=== PATIENT | male | born 1945 | race Caucasian/White ===

== ENCOUNTER 2017-05-11 13:22 | Inpatient (IN) ==
--- NOTE | 2017-05-10 16:21 | Discharge Summary ---
<Mindy Whipple E - Last Filed: 05/10/17 16:18> Date of Encounter: 05/10/17 - Discharge Diagnosis (1) Arthritis of left hip Priority: Primary Status: Chronic (2) CAD (coronary artery disease) Priority: Secondary Status: Chronic Qualifiers: Coronary Disease-Associated Artery/Lesion type: unspecified vessel or lesion type [place] vs. transplanted heart: unspecified whether [place] or transplanted heart Associated angina: angina presence unspecified Qualified Code(s): I25.10 - Atherosclerotic heart disease of [place] coronary artery without angina pectoris (3) Hypertension Priority: Secondary Status: Chronic Qualifiers: Hypertension type: unspecified Qualified Code(s): I10 - Essential (primary ) hypertension (4) Diabetes mellitus Priority: Secondary Status: Chronic Qualifiers: Diabetes mellitus type: type 2 Diabetes mellitus complication status: without complication Diabetes mellitus alf insulin use: without terminologist use Qualified Code(s): E11.9 - Type 2 diabetes mellitus without complications (5) Hemoglobin A1c less than 7.0% Priority: Secondary Status: Chronic (6) HLD (hyperlipidemia) Priority: Secondary Status: Chronic Qualifiers: Hyperlipidemia type: unspecified Qualified Code(s): E78.5 - Hyperlipidemia , unspecified (7) BMI 31.0-31.9,adult Priority: Secondary Status: Chronic - Discharge Medications Home Medications: Aspirin Enteric Coated [Aspirin EC] 325 mg PO DAILY #21 tablet. 05/10/17 [Rx] OxyCODONE Immed Rel [Roxicodone 5 MG] 5 - 10 mg PO Q6HR PRN #40 tablet 05/10/17 [Rx] Lisinopril/Hydrochlorothiazide [Zestoretic 20-25 mg Tablet] 1 each PO DAILY [History] Metoprolol [Lopressor] 50 mg PO QAM 05/11/17 [History] Metoprolol [Lopressor] 100 mg PO HS 05/11/17 [History] Simvastatin [Zocor] 20 mg PO HS 05/11/17 [History] Tramadol HCl [Ultram] 50 mg PO QID PRN 05/11/17 [History] metFORMIN [Glucophage] 500 mg PO BIDWM 05/11/17 [History] Allergies/Adverse Reactions: Allergies No Known Allergies Allergy (Verified 05/11/17 13:45) Primary care physician: Robert Hays Jr, MD - Patient Status Disposition: Transfer Inpatient Rehab Fac - Discharge Instructions Follow Up With: Anjum Esparza MD [Partnered Physician] - 05/21/17 8:30 am Robert Hays Jr, MD [Primary Care Provider] - Additional Instructions: Discharge Instructions: Total Hip Replacement Please call [facility] ([phone]), your Primary Care Physician, or report to the Emergency Room if you have any of the following symptoms: Nausea, vomiting, fever greater that 101.5, swelling, chest pain, shortness of breath, increased pain/redness/drainage/odor for your incision site, numbness/ tingling, or any other concerning symptoms. ACTIVITY:Weight-bearing as tolerated for 8 weeks with hip dislocation precautions that physical therapy taught you. You may progress as tolerated under the guidance of your physical therapist. You do not need to sleep with a pillow between your legs. You can also seep on the operative side or on your stomach. MEDICATIONS: Upon discharge resume your home medications. Take all the medications as prescribed. Take a stool softener if taking narcotic pain medications. Stool softeners are only effective if you drink enough fluids. Drink 6-8 glass of water or fluids a day, unless this is not allowed for another health problem. Despite using stool softeners, if you haven't had a bowel movement in 3 days, please switch to a gentle laxative. Gentle laxatives are sold over the counter. You should have a bowel movement within 24 hours, if not call the office. You will be discharged from the hospital with a prescription for pain medication. You are encouraged to decrease the use of narcotic pain medication as tolerated. Should you require a refill, please call the office. [facility] prescribes narcotic pain medication for only 4-6 weeks after surgery. If you require pain medication beyond this time period, you may be referred to your Primary Care Physician or to the Pain Clinic for further evaluation. Plan ahead for refills on pain medication as many narcotics either need to be picked up at the office or mailed. It is best to call 48-72 hours in advance of needing a prescription refill so you don't run out of medication. To help control the post-operative pain, you may take NSAIDs (Aleve,Advil, Motrin, ibuprofen, naprosyn) or Tylenol as prescribed on the bottle in addition to the pain medication. ANTICOAGULATION (blood thinners): Continue your Aspirin, Lovenox or Coumadin as prescribed to help prevent a blood clot in the leg or in the lungs. As long as your incision remains dry and you tolerate the NSAIDs (Aleve, Advil, Motrin, Ibuprofen, Naprosyn), it is OK to use the NSAIDS while you are taking your anticoagulation medication. Should your incision start to drain, stop the NSAID and contact our office. Common symptoms of blood clot in the legs include: localized pain, swelling, calf tenderness, redness or discoloration of the skin. Blood clot in the lung symptoms include: shortness of breath, rapid pulse, sweating, and chest pain that worsens with deep breathing, coughing up blood, lightheadedness, feelings of anxiety. If you experience any of these symptoms notify your physician immediately, go to the emergency room, or if having trouble breathing, call 911. WOUND CARE: Leave the dressing on for 7 to 10days. You may change the dressing if it is saturated greater than 50%. Do not get the dressing wet at anytime. Wash your hands with antibacterial soap, rinse and dry prior to any wound care. If you have yelitza the visiting nurse or rehab facility can remove the stapes 10-14 days after surgery and place steri-strips across the wound. Leave the steri-strips in place until they fall off on their own. You may let water from the shower run on top of the steri-strips. If you do not have a visiting nurse or rehab facility, you will need to return to the office at 10-14 days for the yelitza to be removed. If you have itching or redness around the dressing call the office. FOLLOW-UP: Please follow up with your surgeon in the orthopedic clinic in 6 weeks from the day of surgery. If you have yelitza that need to be removed, you will need to come back to the office in 10-14 days from the day of surgery. - Hospital Course Hospital course: Mr. Merrill is a 71 year old male - Time Spent with Patient Total time spent providing and/or coordinating discharge services: - VTE Documentation of Mechanical Device: Venous foot pump, device <Anjum Esparza - Last Filed: 05/13/17 15:23> Date of Encounter: 05/13/17 Time of Encounter: 15:22 - Discharge Diagnosis (1) Arthritis of left hip Priority: Primary Status: Chronic (2) CAD (coronary artery disease) Priority: Secondary Status: Chronic Qualifiers: Coronary Disease-Associated Artery/Lesion type: unspecified vessel or lesion type [place] vs. transplanted heart: unspecified whether [place] or transplanted heart Associated angina: angina presence unspecified Qualified Code(s): I25.10 - Atherosclerotic heart disease of [place] coronary artery without angina pectoris (3) Hypertension Priority: Secondary Status: Chronic Qualifiers: Hypertension type: unspecified Qualified Code(s): I10 - Essential (primary ) hypertension (4) Diabetes mellitus Priority: Secondary Status: Chronic Qualifiers: Diabetes mellitus type: type 2 Diabetes mellitus complication status: without complication Diabetes mellitus alf insulin use: without alf use Qualified Code(s): E11.9 - Type 2 diabetes mellitus without complications (5) HLD (hyperlipidemia) Priority: Secondary Status: Chronic Qualifiers: Hyperlipidemia type: unspecified Qualified Code(s): E78.5 - Hyperlipidemia , unspecified (6) History of total left hip replacement Priority: Primary Status: Acute (7) Acute blood loss anemia Priority: Primary Status: Acute (8) Obesity (BMI 30.0-34.9) Priority: Secondary Status: Chronic Labs on day of discharge: Labs from last 24 hours 05/11/17 13:39 POC Glucose 128 H Primary care physician: Robert Hays Jr, MD - Hospital Course Hospital course: Mr. Merrill is a 71 year old male Status post left total hip replacement. The patient had an uneventful postoperative course. They received antibiotics and physical therapy and were discharged in stable condition. There will follow -up in the office in 2 weeks. Aspirin DVT prophylaxis - Time Spent with Patient Total time spent providing and/or coordinating discharge services:
--- NOTE | 2017-05-10 16:25 | Physician Discharge Referral ---
<Anjum Esparza - Last Filed: 05/14/17 13:42> - Diagnosis (1) Arthritis of left hip Status: Chronic (2) CAD (coronary artery disease) Status: Chronic (3) Hypertension Status: Chronic (4) Diabetes mellitus Status: Chronic (5) HLD (hyperlipidemia) Status: Chronic (6) History of total left hip replacement Status: Acute (7) Acute blood loss anemia Status: Acute (8) Obesity (BMI 30.0-34.9) Status: Chronic - Respiratory Orders Smoking Cessation: Smoking cessation has been advised. For more information, call the [place] Tobacco Quit Line at 5-753-USRZ-NOW. - Transfer Medications Home Medications: Aspirin Enteric Coated [Aspirin EC] 325 mg PO DAILY #21 tablet. 05/10/17 [Rx] OxyCODONE Immed Rel [Roxicodone 5 MG] 5 - 10 mg PO Q6HR PRN #40 tablet 05/10/17 [Rx] Lisinopril/Hydrochlorothiazide [Zestoretic 20-25 mg Tablet] 1 each PO DAILY [History] Metoprolol [Lopressor] 50 mg PO QAM 05/11/17 [History] Metoprolol [Lopressor] 100 mg PO HS 05/11/17 [History] Simvastatin [Zocor] 20 mg PO HS 05/11/17 [History] Tramadol HCl [Ultram] 50 mg PO QID PRN 05/11/17 [History] metFORMIN [Glucophage] 500 mg PO BIDWM 05/11/17 [History] Allergies/Adverse Reactions: Allergies No Known Allergies Allergy (Verified 05/11/17 13:45) Certification: Further, I certify that my clinical findings support that this patient is homebound (i.e. absences from home require considerable and taxing effort and are for medical reasons or latter-day services or infrequently or short duration when for other reasons) because: Attestation: My signature below is to certify that this patient is under my care and that I, or nurse practitioner, or a physician's insurance assistant working with me, has a face-to -face encounter with this patient. <Yanira Wilcox - Last Filed: 05/14/17 13:46> Home Health/Hosp Referral Info Transfer to: Home Health Provider in Charge Post Discharge: PCP - Diagnosis (1) History of total left hip replacement Priority: Primary Status: Acute (2) Arthritis of left hip Priority: Primary Status: Chronic (3) CAD (coronary artery disease) Priority: Secondary Status: Chronic (4) Diabetes mellitus Priority: Secondary Status: Chronic (5) HLD (hyperlipidemia) Priority: Secondary Status: Chronic (6) Hypertension Priority: Secondary Status: Chronic - Respiratory Orders Smoking Cessation: Smoking cessation has been advised. For more information, call the [place] Tobacco Quit Line at 4-396-WZHD-NOW. - Dressing/Wound Care Type of Dressing/Treatments w/Frequency: Opsite dressing, leave intact until first post-operative visit. If dressing becomes >50% saturated, contact office, remove dressing and place appropriate dressing in its place. Do not allow for dressing to get wet. [place] in place, plan to remove at post-operative day #14-16. Total Joint Precautions x 6 weeks Apply ICE 3-6x/day for 20 minutes at a time. Encourage ambulation throughout the day Use Incentive spirometer 10x/hour. Elevate affected extremity above heart as tolerated. Brace: Wear hip abduction brace at night x 6 weeks. - Diet/Nutrition Diet/Nutrition Orders: Regular - Activity Activity Orders: Up ad ilda, Ambulate - Services Needed Following services are medically necessary services: Nursing, Home Health Aide, Physical Therapy, Occupational Therapy Certification: Further, I certify that my clinical findings support that this patient is homebound (i.e. absences from home require considerable and taxing effort and are for medical reasons or latter-day services or infrequently or short duration when for other reasons) because: Homebound Reason: Post-surgery restriction and or conditions limit ability to leave home Attestation: My signature below is to certify that this patient is under my care and that I, or nurse practitioner, or a physician's insurance assistant working with me, has a face-to -face encounter with this patient. <Mindy Whipple E - Last Filed: 05/14/17 14:19> Home Health/Hosp Referral Info Transfer to: Home Health Attending Provider: Dr. Anjum Esparza - Diagnosis (1) History of total left hip replacement Priority: Primary Status: Acute (2) Arthritis of left hip Priority: Primary Status: Chronic (3) CAD (coronary artery disease) Priority: Secondary Status: Chronic (4) Hypertension Priority: Secondary Status: Chronic (5) Diabetes mellitus Priority: Secondary Status: Chronic (6) Hemoglobin A1c less than 7.0% Priority: Secondary Status: Chronic (7) HLD (hyperlipidemia) Priority: Secondary Status: Chronic (8) BMI 31.0-31.9,adult Priority: Secondary Status: Chronic - Respiratory Orders Smoking Cessation: Smoking cessation has been advised. For more information, call the [place] Tobacco Quit Line at 6-285-AKVM-NOW. - Dressing/Wound Care Site: left hip Type of Dressing/Treatments w/Frequency: Opsite placed. Keep dressing intact until first follow up appointment. If > 50% saturated, notify office, remove dressing and place appropriate dressing back in place. Dressing is water resistant, not water-proof. OK to shower, but do not get dressing wet. - Diet/Nutrition Diet/Nutrition Orders: Regular - Activity Activity Orders: Ambulate, Chair, Walker Activity: List: Total Hip replacement Precautions Apply cold therapy 3-6x/day for 20 minutes at a time. Encourage ambulation throughout the day and incentive spirometer 10x/hour. Elevate affected extremity as tolerated. Brace: Wear hip abduction pillow when laying/sleeping - Services Needed Following services are medically necessary services: Nursing, Physical Therapy, Occupational Therapy Certification: Further, I certify that my clinical findings support that this patient is homebound (i.e. absences from home require considerable and taxing effort and are for medical reasons or latter-day services or infrequently or short duration when for other reasons) because: Attestation: My signature below is to certify that this patient is under my care and that I, or nurse practitioner, or physician insurance assistant working with me, has a face-to- face encounter with this patient.
[~2017-05-11 13:22] MED LIST: *HR* Labetalol 20 MG/4 ML SYRINGE IVP PRN; *HR* Morphine 2 MG/ML SYRINGE IVP PRN; Dexamethasone 4 MG/ML VIAL IVP ONE; Ondansetron 4 MG/2 ML VIAL IVP ONE
[2017-05-11] MEDS ORDERED: Acetaminophen IV 1,000 MG/100 ML INFUS..BTL IVPB ONE (13:35)
[2017-05-11] MEDS ORDERED: Gabapentin 300 MG CAPSULE PO STA (13:35)
--- NOTE | 2017-05-11 13:39 | Anesthesia Evaluation PreOp ---
Date of Encounter: 05/11/17 Time of Encounter: 13:36 - Past History Planned Operation: L-Total Hip Cardiac History: [place] ( [place] in 1998. 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 05/10/17 [Rx] OxyCODONE Immed Rel [Roxicodone 5 MG] 5 - 10 mg PO Q6HR PRN #40 tablet 05/10/17 [Rx] Allergies No Known Allergies Allergy (Verified 05/11/17 13:45) - Meds/Allergy Pre-op Review Medications Reviewed: Yes Allergies Reviewed: Yes Beta Blockers on Current Med List: Yes (Metoprolol) If Beta Blockers taken, Date/Time (Last Dose taken): 05/11/17 @ 0900 Anesthesia Results - Labs Laboratory Tests 05/04/17 05/04/17 05/04/17 14:40 14:40 14:40 WBC 8.6 Hgb 16.1 Hct 48.6 Plt Count 262 PT 12.2 H INR 1.1 APTT 31.0 Sodium 142 Potassium 4.0 Chloride 104 Carbon Dioxide 28 BUN 21 Creatinine 1.04 Est GFR (Non-Af Amer) > 60 Est Mean Plasma Glucose Hemoglobin A1c 05/04/17 14:40 WBC Hgb Hct Plt Count PT INR APTT Sodium Potassium Chloride Carbon Dioxide BUN Creatinine Est GFR (Non-Af Amer) Est Mean Plasma Glucose 148 Hemoglobin A1c 6.8 H - Imaging EKG: image reviewed (78bpm NSR) Anesthesia Exam O2 Sat Height 1.7 m Weight 88.904 kg O2 Sat by Pulse Oximetry 95 Vital Signs Temp Pulse Resp BP Pulse Ox 98.3 F 82 16 145/74 95 05/11/17 13:25 05/11/17 13:25 05/11/17 13:25 05/11/17 13:05/11/17 13:25 Height: 5'7" Weight: 203# BMI = 31 NPO (# of Hours): MNoc - HEENT Pupil (Motor): Pupils equal, EOMI Mallampati: II Teeth: Missing, Edentulous (upper), Poor dentition Denture Type: Lower: Partial Oral Opening: Greater than 3 - MANUFACT[employer]ING [employer] LEADER LOC: Oriented MANUFA[employer]ING [employer] LEADER Motor: Normal RUE, Normal LUE, Normal RLE, Normal LLE, Normal Face [employer]UFA[employer]ING [employer] LEADER Sensory: Normal: RUE, LUE, RLE, LLE, Face - Cardiac Rhythm: Regular Murmur: None - Pulmonary Breath Sounds: bilateral Clear Respiratory Effort: Symmetrical Anesthesia Assess/Plan ASA Score: 3 (CAD, DM, HTN, Chol,) Modified Sylvester Scale for Level of Consciousness: Cooperative, oriented, and tranquil Anesthetic Plan: General Monitoring Plan: Standard Monitors Recovery Plan: PACU Anes Supervising Prov Stmt: Pt seen/evaluated, R&B discussed, questions answered and consent obtained. Maria Antonia Meyers MD
[2017-05-11] MEDS ORDERED: CeFAZolin Pre 2,000 MG/100 ML 2,000 MG/100 ML BAG IVPB ONE (13:44)
[2017-05-11] MEDS ORDERED: Ringers Solution, Lactated 1,000 ML IVC SCH ×2 (13:45→18:29)
--- NOTE | 2017-05-11 14:13 | History & Physical Report ---
Date of Encounter: 05/11/17 Time of Encounter: 14:13 24 Hour HP Update - Instructions Instructions: If the History and Physical is less than 30 days old and was completed prior to A.M. admission and or procedure and has NOT been updated on calendar day of procedure please complete this update prior to performing procedure. - Update Patient reports changes in Medical Condition: No Changes in examination, assessment, or condition: No Changes in Medication: No Preop tests/diagnostics Reviewed: Yes Surgery Remains Indicated: Yes Consent for Planned Operative Procedure(s) Verified: Yes - Pre-Operative Checklist Preoperative Checklist Indicated: No Prophylactic Antibiotic Ordered: Yes Is VTE Prophylaxis Indicated?: Yes
[2017-05-11] MEDS ORDERED: Ondansetron 4 MG/2 ML VIAL ONE (14:40)
[2017-05-11] MEDS ORDERED: *HR* Propofol 200 MG/20 ML VIAL IVP ONE (14:40)
[2017-05-11] MEDS ORDERED: Lidocaine -MPF 2% 2 ML VIAL ONE (14:40)
[2017-05-11] MEDS ORDERED: *HR* FentaNYL (PF) 100 MCG/2 ML VIAL ONE (14:40)
[2017-05-11] MEDS ORDERED: Dexamethasone 4 MG/ML VIAL ONE (14:40)
[2017-05-11] MEDS ORDERED: *HR* Midazolam HCl 2 MG/2 ML VIAL ONE (15:02)
[2017-05-11] MEDS ORDERED: Bupivacaine/Clonidine Syringe 1 EACH SYRINGE ONE (15:20)
--- NOTE | 2017-05-11 16:27 | Anesthesia Procedures ---
Date of Encounter: 05/11/17 Time of Encounter: 15:40 Procedures: Anesthesia - Nerve Block Procedure Date: 05/11/17 Time: 15:40 Allergies/Adv Reactions: nka Surgical Procedure: Left ANDRESSA Checklist: Correct Patient Identifier, Correct procedure, History checked Correct side: Left Blood Thinner: No Monitor Applied: EKG, BP, Pulse Oximetry Supplemental Oxygen via Nasal Cannula (L/min): 3 Sedation: Versed (mg): 2 Sedation: Fentanyl (mcg): 100 Indication: Post Op Analgesia (per dr. bravo) Pre-op Neuro Deficits: No Block Type: Other (fascia iliaca) Catheter placed: No Sterile Technique: Yes Ultrasound used: Yes Anatomy identified: Yes Visual spread of Local: Yes Neuro Stimulation: No Blood on Needle Aspiration: No Smooth Injection of Local: Yes Pain with Injection of Local: No Prep: Chlorhexadine Needle: 22 x 50 mm Stimuplex Local: 0.25% Bupivicaine w/Clonidine 20 mcg/cc Volume (cc): 60 Number of Attempts: 1 Complications: None/effective block Vitals: Vital Signs/O2 Sat/Glucose, Most Recent Temp Pulse Resp BP Pulse Ox 98.3 F 79 18 140/101 97 05/11/17 13:25 05/11/17 15:20 05/11/17 15:20 05/11/17 15:20 05/11/17 15:20 Blood Glucose* 128 Comments: performed by Godfrey Espinosa crna
--- NOTE | 2017-05-11 16:43 | Orthopedic Operative Note ---
Date of procedure: 05/11/17 Pre-op diagnosis: Left hip arthritis Post-op diagnosis: same Procedure: Procedure: Left Total Hip Replacment Estimated blood loss: 200 cc Hardware: Metal and polyethylene replacement. Biomet DM Cup: 56 G7 fin cup Femoral size 13 echo full profile lateralized stem Head: +12 head with Susanne Procedural Notes: Grade 4 arthritic changes femoral head acetabular socket. Operative procedure: The patient was brought to the operating room and placed on the operating room table. After general anesthesia was administered the patient was placed in the lateral decubitus position with the operative leg up. All pressure points were padded appropriately and the head was stabilized in the neutral position. The operative extremity was prepped and draped in the sterile surgical fashion patient received IV antibiotic prior to skin incision. A standard posterior approach is made to the operative hip, the incision was made through the skin and subcutaneous tissue hemostasis was obtained with Bovie cautery. Using careful sharp dissection the fascia was identified and incised exposing the external rotators. The external rotators were released off the greater trochanter and tagged with #2 FiberWire suture. The capsule was T'd open and the hip was brought into internal rotation. Patient noted to have grade 4 arthritic changes femoral head. The femoral neck cut was made at the appropriate level. An anterior capsulotomy was performed for the anterior retractor. Soft tissues removed from the acetabulum. Patient noted to have grade 4 arthritic changes acetabulum. Acetabulum was first reamed medially, and then reamed in 15 degrees of anteversion and 45 degrees off the horizontal. It was reamed up to the appropriate size 56 The appropriate-sized 56 acetabular cup was impacted in place in 15 degrees of anteversion and 45 degrees off the horizontal. This had good fit and fixation. The hip was brought back in to internal rotation and prepared with the sample box maker followed by the canal finder followed by broaching process in 20 degrees anteversion. It was broached up to the appropriate size 13 The femoral implant was impacted in place in 20 degrees of anteversion. Trial reduction found the hip to be stable with a +12 head and Susanne. The trials were removed and the real implants were impacted in place. The hip was reduced, patient had apparent equal leg lengths. The hip had excellent stability with forward flexion to 90 degrees adduction of 30 degrees and internal rotation of 60 degrees. The hip had no shuck. The hips after 2 minutes with a Betadine saline solution. It was irrigated out with 2 L of pulse irrigation. The hip was closed by the PA. Fascia was closed with a running #2 PDS suture. The deep tissue was irrigated and closed deep with #1 PDS suture superficially with 0 PDS suture and skin was closed with Dermabond and skin yelitza. The patient was placed in a sterile dressing and abduction pillow. The patient was extubated and transferred to the recovery room in stable condition. Anesthesia: CARRIE Surgeon: Anjum Esparza Set Up Mechanic Coil Winding Machines: Mindy Whipple Condition: stable Disposition: PACU
[2017-05-11] MEDS ORDERED: *HR* Morphine 10 MG/ML VIAL ONE (16:44)
[2017-05-11] MEDS: *HR* HYDROmorphone (PF) 1 MG/ML SYRINGE IVP PRN ×2 (17:30→17:54)
[2017-05-11] MEDS ORDERED: *HR* Enoxaparin 30 MG/0.3 ML SYRINGE SQ SCH (18:00)
[2017-05-11 18:08] LABS: Hematocrit 42.4 % (37.5-50.1); Hemoglobin 13.9 g/dL (12.9-16.9)
--- NOTE | 2017-05-11 18:12 | Anesthesia Evaluation Post Op ---
Date of Encounter: 05/11/17 Time of Encounter: 18:09 - Vital Signs Vital Signs: vss - Lungs Lungs: Clear Ascult./Percussion - Airway Airway: Non-obstructed - Cardiovascular Baseline Rhythm - Mental Status Mental Status: Alert & Oriented, Answers Appropriately - Pain Pain Scale used: Yen-Scott (Faces) (tolerable) - Nausea Vomiting Nausea Vomiting: Not Present - Hydration Hydration: Ice chips - Discharge PostOp Status: Transfer Patient to floor
[2017-05-11] MEDS ORDERED: Temazepam 15 MG CAPSULE PO PRN (18:29)
[2017-05-11] MEDS ORDERED: MOM Conc 10 ML UD.LIQ PO PRN (18:29)
[2017-05-11] MEDS ORDERED: Ondansetron 4 MG/2 ML VIAL IVP PRN (18:29)
[2017-05-11] MEDS ORDERED: traMADol 50 MG TABLET PO PRN (18:29)
[2017-05-11] MEDS ORDERED: *HR* Dextrose 50 % in Water (Syg) 50 ML SYRINGE IVP PRN (18:29)
[2017-05-11] MEDS ORDERED: Naloxone 0.4 MG/ML INJ IVP PRN (18:29)
[2017-05-11] MEDS ORDERED: *HR* OxyCODONE Immed Rel 5 MG TABLET PO PRN (18:29)
[2017-05-11] MEDS ORDERED: D5% in Water 1,000 ML IVC PRN (18:29)
[2017-05-11] MEDS ORDERED: *HR* HYDROmorphone (PF) 1 MG/ML SYRINGE IVP PRN (18:29)
[2017-05-11] MEDS ORDERED: Sennosides 8.6 MG TABLET PO PRN (18:29)
[2017-05-11] MEDS ORDERED: Dextrose Gel 15 GM PO PRN ×2 (18:29)
[2017-05-11] MEDS: ceFAZolin 2,000 MG in D5% in Water 100 ML IVPB SCH (20:54)
[2017-05-11] MEDS: Ascorbic Acid 500 MG TABLET PO SCH (20:54)
[2017-05-11] MEDS: *HR* Metformin 500 MG TABLET PO SCH (20:54)
[2017-05-11] MEDS: Insulin LISPRO 300 UNITS/3 ML VIAL SQ SCH ×2 (21:05)
[2017-05-11] MEDS: *HR* OxyCODONE Immed Rel 5 MG TABLET PO PRN (22:36)
[2017-05-12] MEDS: ceFAZolin 2,000 MG in D5% in Water 100 ML IVPB SCH (03:57)
[2017-05-12 05:59] LABS: Hematocrit 38.3 % (37.5-50.1); Hemoglobin 12.6 g/dL (12.9-16.9)
[2017-05-12 06:05] LABS: BUN/Creatinine Ratio 14 (6-26); Blood Urea Nitrogen 12 mg/dL (8-26); Calcium 8.4 mg/dL (8.6-10.8); Carbon Dioxide 30 mEq/L (19-29); Chloride 99 mEq/L (98-109); Glucose 182 mg/dL (70-99); Osmolality,Calculated 278 (280-300); Potassium 4.3 mEq/L (3.5-4.5); Sodium 132 mEq/L (136-145); eGFR For African Americans > 60 (> 60); eGFR For Non-African Americans > 60 (> 60)
[2017-05-12] MEDS: *HR* OxyCODONE Immed Rel 5 MG TABLET PO PRN ×4 (06:26→23:58)
[2017-05-12] MEDS: *HR* Enoxaparin 30 MG/0.3 ML SYRINGE SQ SCH ×2 (06:29→16:47)
--- NOTE | 2017-05-12 06:45 | Orthopedics Progress Note ---
Date of Encounter: 05/12/17 Time of Encounter: 06:44 - Assessment and Plan (1) Arthritis of left hip Current Visit: Yes Status: Chronic (2) CAD (coronary artery disease) Current Visit: Yes Status: Chronic Qualifiers: Coronary Disease-Associated Artery/Lesion type: unspecified vessel or lesion type [place] vs. transplanted heart: unspecified whether [place] or transplanted heart Associated angina: angina presence unspecified Qualified Code(s): I25.10 - Atherosclerotic heart disease of [place] coronary artery without angina pectoris (3) Hypertension Current Visit: Yes Status: Chronic Qualifiers: Hypertension type: unspecified Qualified Code(s): I10 - Essential (primary ) hypertension (4) Diabetes mellitus Current Visit: Yes Status: Chronic Qualifiers: Diabetes mellitus type: type 2 Diabetes mellitus complication status: without complication Diabetes mellitus termination clerk insulin use: without termination clerk use Qualified Code(s): E11.9 - Type 2 diabetes mellitus without complications (5) HLD (hyperlipidemia) Current Visit: Yes Status: Chronic Qualifiers: Hyperlipidemia type: unspecified Qualified Code(s): E78.5 - Hyperlipidemia , unspecified (6) BMI 31.0-31.9,adult Current Visit: Yes Status: Chronic (7) History of total left hip replacement Current Visit: Yes Status: Acute Subjective Interval history: Patient was seen this morning doing well without complaints. Afebrile vital signs stable. Operative extremity: Neurovascularly intact Dressing clean dry and intact Calves nontender Assessment and plan: Continue with postoperative care Hematocrit 38 Objective Vital signs: Vital Signs Temp Pulse Resp BP Pulse Ox 05/12/17 06:03 97 05/12/17 05:08 98.4 F 70 16 119/72 97 05/12/17 00:53 97.8 F 94 16 127/69 95 05/11/17 22:24 98.2 F 104 16 120/67 94 05/11/17 20:30 97.6 F 105 15 123/72 94 05/11/17 18:59 97.7 F 109 18 109/64 95 05/11/17 18:46 95 05/11/17 18:30 97.7 F 103 17 113/69 95 05/11/17 18:11 97.7 F 102 16 132/82 95 05/11/17 18:01 104 16 114/80 96 05/11/17 17:51 97.7 F 98 18 130/81 96 05/11/17 17:41 101 18 136/76 93 05/11/17 17:31 102 18 144/79 97 05/11/17 17:21 97.2 F L 98 16 142/89 98 05/11/17 15:20 79 18 140/101 97 05/11/17 13:25 98.3 F 82 16 145/74 95 Intake and Output 05/11/17 05/11/17 05/12/17 15:59 23:59 07:59 Intake Total 300 / 300 Output Total 200 / 200 560 / 560 Balance 100 / 100 -560 / -560 Intake: IV Fluids 200 / 200 Ancef Premix 2,000 MG/100 100 / 100 ML 2,000 mg In 100 ml @ 200 mls/hr IVPB PREOP ONE Rx#:[id number] Ancef 2,000 MG In 100 / 100 Dextrose 5% 100 ML @ 200 mls/hr IVPB Q8H RODGER Rx#: [id number] Oral 100 / 100 Output: Estimated Blood Loss 200 / 200 Straight Cath 560 / 560 Other: Weight 88.904 kg 100.6 kg Blood Glucose* 128 198 Patient Weight 05/12/17 23:59 Weight 100.6 kg - Labs CBC & BMP: 05/12/17 05:42 05/12/17 05:42 Labs: Abnormal lab results Hgb 12.6 g/dL (12.9-16.9) L 05/12/17 05:42 Sodium 132 mEq/L (136-145) L 05/12/17 05:42 Carbon Dioxide 30 mEq/L (19-29) H 05/12/17 05:42 Glucose 182 mg/dL (70-99) H 05/12/17 05:42 POC Glucose 128 (58-89) H 05/11/17 13:39 Calculated Osmolality 278 (280-300) L 05/12/17 05:42 Calcium 8.4 mg/dL (8.6-10.8) L 05/12/17 05:42 - VTE Documentation of Mechanical Device: Venous foot pump, device Consult Discharge Plan - Plan Referrals: Robert Hays Jr, MD [Primary Care Provider] -
[2017-05-12] MEDS: Multivit/Ca/Min/Fe/FA 1 TAB TABLET PO SCH (07:38)
[2017-05-12] MEDS: Ascorbic Acid 500 MG TABLET PO SCH ×2 (07:38→16:47)
[2017-05-12] MEDS: *HR* Metformin 500 MG TABLET PO SCH ×2 (07:38→16:47)
[2017-05-12] MEDS: Insulin LISPRO 300 UNITS/3 ML VIAL SQ SCH ×4 (07:39→22:03)
[2017-05-12] MEDS ORDERED: 0.9 % Sodium Chloride 1,000 ML IVC ONE (16:17)
--- NOTE | 2017-05-12 17:24 | Event Note ---
Date of Encounter: 05/12/17 Time of Encounter: 12:30 PCR - POD#1 - Left THR Patient seen at bedside. Pain control: adequate PT: participating,difficulty with ambulation All questions and concerns addressed. Educated on use of incentive spirometer, ambulation, and hydration. Patient educated on post-operative restrictions and care. Addressed: No further concerns D/C plan:. [facility] D/C 05/13/17
[2017-05-13 05:21] LABS: Hematocrit 33.8 % (37.5-50.1); Hemoglobin 11.1 g/dL (12.9-16.9)
[2017-05-13] MEDS: *HR* Enoxaparin 30 MG/0.3 ML SYRINGE SQ SCH ×2 (05:22→17:08)
[2017-05-13 05:41] LABS: BUN/Creatinine Ratio 22 (6-26); Calcium 8.5 mg/dL (8.6-10.8); Carbon Dioxide 26 mEq/L (19-29); Chloride 97 mEq/L (98-109); Glucose 158 mg/dL (70-99); Osmolality,Calculated 275 (280-300); Sodium 129 mEq/L (136-145); eGFR For African Americans > 60 (> 60); eGFR For Non-African Americans > 60 (> 60)
[2017-05-13 05:42] LABS: Blood Urea Nitrogen 24 mg/dL (8-26)
[2017-05-13] MEDS: *HR* OxyCODONE Immed Rel 5 MG TABLET PO PRN ×4 (08:38→21:14)
[2017-05-13] MEDS: *HR* Metformin 500 MG TABLET PO SCH ×2 (08:39→17:07)
[2017-05-13] MEDS: Ascorbic Acid 500 MG TABLET PO SCH ×2 (08:39→17:07)
[2017-05-13] MEDS: Multivit/Ca/Min/Fe/FA 1 TAB TABLET PO SCH (08:40)
[2017-05-13] MEDS: Insulin LISPRO 300 UNITS/3 ML VIAL SQ SCH ×4 (08:42→20:57)
--- NOTE | 2017-05-13 09:47 | Orthopedics Progress Note ---
Date of Encounter: 05/13/17 Time of Encounter: 09:47 - Assessment and Plan (1) Arthritis of left hip Current Visit: Yes Status: Chronic (2) CAD (coronary artery disease) Current Visit: Yes Status: Chronic Qualifiers: Coronary Disease-Associated Artery/Lesion type: unspecified vessel or lesion type [place] vs. transplanted heart: unspecified whether [place] or transplanted heart Associated angina: angina presence unspecified Qualified Code(s): I25.10 - Atherosclerotic heart disease of [place] coronary artery without angina pectoris (3) Hypertension Current Visit: Yes Status: Chronic Qualifiers: Hypertension type: unspecified Qualified Code(s): I10 - Essential (primary ) hypertension (4) Diabetes mellitus Current Visit: Yes Status: Chronic Qualifiers: Diabetes mellitus type: type 2 Diabetes mellitus complication status: without complication Diabetes mellitus intermediate designer insulin use: without intermediate designer use Qualified Code(s): E11.9 - Type 2 diabetes mellitus without complications (5) HLD (hyperlipidemia) Current Visit: Yes Status: Chronic Qualifiers: Hyperlipidemia type: unspecified Qualified Code(s): E78.5 - Hyperlipidemia , unspecified (6) History of total left hip replacement Current Visit: Yes Status: Acute (7) Acute blood loss anemia Current Visit: Yes Status: Acute (8) Obesity (BMI 30.0-34.9) Current Visit: Yes Status: Chronic Subjective Interval history: Patient was seen this morning doing well without complaints. Afebrile vital signs stable. Operative extremity: Neurovascularly intact Dressing clean dry and intact Calves nontender Assessment and plan: Continue with postoperative care Hematocrit 33 Objective Vital signs: Vital Signs Temp Pulse Resp BP Pulse Ox 05/13/17 06:54 97.9 F 89 18 117/63 93 05/13/17 04:42 97.5 F L 89 16 97/59 92 05/13/17 00:30 98.9 F 85 17 107/59 95 05/12/17 21:54 98.6 F 73 16 93/52 93 05/12/17 14:46 97.9 F 82 16 94/52 93 05/12/17 11:16 98.3 F 72 18 112/65 93 Intake and Output 05/12/17 05/13/17 05/13/17 23:59 07:59 15:59 Intake Total 50 / 50 120 / 120 Output Total 250 / 250 Balance -200 / -200 120 / 120 Intake: Oral 50 / 50 120 / 120 Output: Urine 250 / 250 Other: Meal Breakfast Percent of Meal Consumed 85% Weight 100.2 kg Blood Glucose* 157 193 Patient Weight 05/13/17 23:59 Weight 100.2 kg - Labs CBC & BMP: 05/13/17 04:19 05/13/17 04:19 Labs: Abnormal lab results Hgb 11.1 g/dL (12.9-16.9) L D 05/13/17 04:19 Hct 33.8 % (37.5-50.1) L 05/13/17 04:19 Sodium 129 mEq/L (136-145) L 05/13/17 04:19 Chloride 97 mEq/L (98-109) L 05/13/17 04:19 Glucose 158 mg/dL (70-99) H 05/13/17 04:19 POC Glucose 193 (58-89) H 05/13/17 06:55 Calculated Osmolality 275 (280-300) L 05/13/17 04:19 Calcium 8.5 mg/dL (8.6-10.8) L 05/13/17 04:19 - VTE Documentation of Mechanical Device: Venous foot pump, device Consult Discharge Plan - Plan Additional Instructions: Discharge Instructions: Total Hip Replacement Please call [facility] ([phone]), your Primary Care Physician, or report to the Emergency Room if you have any of the following symptoms: Nausea, vomiting, fever greater that 101.5, swelling, chest pain, shortness of breath, increased pain/redness/drainage/odor for your incision site, numbness/ tingling, or any other concerning symptoms. ACTIVITY:Weight-bearing as tolerated for 8 weeks with hip dislocation precautions that physical therapy taught you. You may progress as tolerated under the guidance of your physical therapist. You do not need to sleep with a pillow between your legs. You can also seep on the operative side or on your stomach. MEDICATIONS: Upon discharge resume your home medications. Take all the medications as prescribed. Take a stool softener if taking narcotic pain medications. Stool softeners are only effective if you drink enough fluids. Drink 6-8 glass of water or fluids a day, unless this is not allowed for another health problem. Despite using stool softeners, if you haven't had a bowel movement in 3 days, please switch to a gentle laxative. Gentle laxatives are sold over the counter. You should have a bowel movement within 24 hours, if not call the office. You will be discharged from the hospital with a prescription for pain medication. You are encouraged to decrease the use of narcotic pain medication as tolerated. Should you require a refill, please call the office. [facility] prescribes narcotic pain medication for only 4-6 weeks after surgery. If you require pain medication beyond this time period, you may be referred to your Primary Care Physician or to the Pain Clinic for further evaluation. Plan ahead for refills on pain medication as many narcotics either need to be picked up at the office or mailed. It is best to call 48-72 hours in advance of needing a prescription refill so you don't run out of medication. To help control the post-operative pain, you may take NSAIDs (Aleve,Advil, Motrin, ibuprofen, naprosyn) or Tylenol as prescribed on the bottle in addition to the pain medication. ANTICOAGULATION (blood thinners): Continue your Aspirin, Lovenox or Coumadin as prescribed to help prevent a blood clot in the leg or in the lungs. As long as your incision remains dry and you tolerate the NSAIDs (Aleve, Advil, Motrin, Ibuprofen, Naprosyn), it is OK to use the NSAIDS while you are taking your anticoagulation medication. Should your incision start to drain, stop the NSAID and contact our office. Common symptoms of blood clot in the legs include: localized pain, swelling, calf tenderness, redness or discoloration of the skin. Blood clot in the lung symptoms include: shortness of breath, rapid pulse, sweating, and chest pain that worsens with deep breathing, coughing up blood, lightheadedness, feelings of anxiety. If you experience any of these symptoms notify your physician immediately, go to the emergency room, or if having trouble breathing, call 911. WOUND CARE: Leave the dressing on for 7 to 10days. You may change the dressing if it is saturated greater than 50%. Do not get the dressing wet at anytime. Wash your hands with antibacterial soap, rinse and dry prior to any wound care. If you have yelitza the visiting nurse or rehab facility can remove the stapes 10-14 days after surgery and place steri-strips across the wound. Leave the steri-strips in place until they fall off on their own. You may let water from the shower run on top of the steri-strips. If you do not have a visiting nurse or rehab facility, you will need to return to the office at 10-14 days for the yelitza to be removed. If you have itching or redness around the dressing call the office. FOLLOW-UP: Please follow up with your surgeon in the orthopedic clinic in 6 weeks from the day of surgery. If you have yelitza that need to be removed, you will need to come back to the office in 10-14 days from the day of surgery. Referrals: Anjum Esparza MD [Partnered Physician] - 05/21/17 8:30 am Robert Hays Jr, MD [Primary Care Provider] -
--- NOTE | 2017-05-13 11:19 | Event Note ---
Date of Encounter: 05/13/17 Time of Encounter: 11:58 PCR - POD#2 - Left THR Patient seen at bedside. Pain control: inadequate PT: participating,difficulty with ambulation, unable to recall precautions - recommending inpatient rehab All questions and concerns addressed. Educated on use of incentive spirometer, ambulation, and hydration. Encouraged PO hydration. Patient educated on post-operative restrictions and care. Addressed: Patient refusing inpatient rehab, discussed safety concerns. Patient states that he is going home with home health. Patient states that he is having a lot of pain and numbness in his leg. Discussed Lidoderm patch - patient would like to try - order communicated with nurse. Educated on importance of using walker and preventing falls. D/C plan:. [facility] D/C 05/13/17 ----- Karla to speak with patient regarding possible switch to inpatient rehab today - patient refusing. Requesting home health.
--- NOTE | 2017-05-14 06:26 | Orthopedics Progress Note ---
Date of Encounter: 05/14/17 Time of Encounter: 06:26 - Assessment and Plan (1) Arthritis of left hip Current Visit: Yes Status: Chronic (2) CAD (coronary artery disease) Current Visit: Yes Status: Chronic Qualifiers: Coronary Disease-Associated Artery/Lesion type: unspecified vessel or lesion type [place] vs. transplanted heart: unspecified whether [place] or transplanted heart Associated angina: angina presence unspecified Qualified Code(s): I25.10 - Atherosclerotic heart disease of [place] coronary artery without angina pectoris (3) Hypertension Current Visit: Yes Status: Chronic Qualifiers: Hypertension type: unspecified Qualified Code(s): I10 - Essential (primary ) hypertension (4) Diabetes mellitus Current Visit: Yes Status: Chronic Qualifiers: Diabetes mellitus type: type 2 Diabetes mellitus complication status: without complication Diabetes mellitus intermediate teacher insulin use: without intermediate teacher use Qualified Code(s): E11.9 - Type 2 diabetes mellitus without complications (5) HLD (hyperlipidemia) Current Visit: Yes Status: Chronic Qualifiers: Hyperlipidemia type: unspecified Qualified Code(s): E78.5 - Hyperlipidemia , unspecified (6) History of total left hip replacement Current Visit: Yes Status: Acute (7) Acute blood loss anemia Current Visit: Yes Status: Acute (8) Obesity (BMI 30.0-34.9) Current Visit: Yes Status: Chronic Subjective Interval history: Patient was seen this morning doing well without complaints. Afebrile vital signs stable. Operative extremity: Neurovascularly intact Dressing clean dry and intact Calves nontender Assessment and plan: Continue with postoperative care Discharge today Objective Vital signs: Vital Signs Temp Pulse Resp BP Pulse Ox 05/14/17 00:04 99.0 F 95 18 106/51 93 05/13/17 20:05 98.2 F 99 16 100/52 95 05/13/17 17:00 91 120/55 05/13/17 15:12 99.7 F H 84 16 100/57 97 05/13/17 10:55 97.6 F 84 18 114/66 94 05/13/17 06:54 97.9 F 89 18 117/63 93 Intake and Output 05/13/17 05/13/17 05/14/17 15:59 23:59 07:59 Intake Total 360 / 360 700 / 700 700 / 700 Output Total 200 / 200 200 / 200 300 / 300 Balance 160 / 160 500 / 500 400 / 400 Intake: Oral 360 / 360 700 / 700 700 / 700 Output: Urine 200 / 200 200 / 200 300 / 300 Other: Meal Lunch Dinner Percent of Meal Consumed 100% 10% # Voids 1 Blood Glucose* 190 154 - Labs CBC & BMP: 05/13/17 04:19 05/13/17 04:19 Labs: Abnormal lab results Hgb 11.1 g/dL (12.9-16.9) L D 05/13/17 04:19 Hct 33.8 % (37.5-50.1) L 05/13/17 04:19 Sodium 129 mEq/L (136-145) L 05/13/17 04:19 Chloride 97 mEq/L (98-109) L 05/13/17 04:19 Glucose 158 mg/dL (70-99) H 05/13/17 04:19 POC Glucose 177 (58-89) H 05/13/17 16:13 Calculated Osmolality 275 (280-300) L 05/13/17 04:19 Calcium 8.5 mg/dL (8.6-10.8) L 05/13/17 04:19 - VTE Documentation of Mechanical Device: Venous foot pump, device Consult Discharge Plan - Plan Additional Instructions: Discharge Instructions: Total Hip Replacement Please call [facility] ([phone]), your Primary Care Physician, or report to the Emergency Room if you have any of the following symptoms: Nausea, vomiting, fever greater that 101.5, swelling, chest pain, shortness of breath, increased pain/redness/drainage/odor for your incision site, numbness/ tingling, or any other concerning symptoms. ACTIVITY:Weight-bearing as tolerated for 8 weeks with hip dislocation precautions that physical therapy taught you. You may progress as tolerated under the guidance of your physical therapist. You do not need to sleep with a pillow between your legs. You can also seep on the operative side or on your stomach. MEDICATIONS: Upon discharge resume your home medications. Take all the medications as prescribed. Take a stool softener if taking narcotic pain medications. Stool softeners are only effective if you drink enough fluids. Drink 6-8 glass of water or fluids a day, unless this is not allowed for another health problem. Despite using stool softeners, if you haven't had a bowel movement in 3 days, please switch to a gentle laxative. Gentle laxatives are sold over the counter. You should have a bowel movement within 24 hours, if not call the office. You will be discharged from the hospital with a prescription for pain medication. You are encouraged to decrease the use of narcotic pain medication as tolerated. Should you require a refill, please call the office. [facility] prescribes narcotic pain medication for only 4-6 weeks after surgery. If you require pain medication beyond this time period, you may be referred to your Primary Care Physician or to the Pain Clinic for further evaluation. Plan ahead for refills on pain medication as many narcotics either need to be picked up at the office or mailed. It is best to call 48-72 hours in advance of needing a prescription refill so you don't run out of medication. To help control the post-operative pain, you may take NSAIDs (Aleve,Advil, Motrin, ibuprofen, naprosyn) or Tylenol as prescribed on the bottle in addition to the pain medication. ANTICOAGULATION (blood thinners): Continue your Aspirin, Lovenox or Coumadin as prescribed to help prevent a blood clot in the leg or in the lungs. As long as your incision remains dry and you tolerate the NSAIDs (Aleve, Advil, Motrin, Ibuprofen, Naprosyn), it is OK to use the NSAIDS while you are taking your anticoagulation medication. Should your incision start to drain, stop the NSAID and contact our office. Common symptoms of blood clot in the legs include: localized pain, swelling, calf tenderness, redness or discoloration of the skin. Blood clot in the lung symptoms include: shortness of breath, rapid pulse, sweating, and chest pain that worsens with deep breathing, coughing up blood, lightheadedness, feelings of anxiety. If you experience any of these symptoms notify your physician immediately, go to the emergency room, or if having trouble breathing, call 911. WOUND CARE: Leave the dressing on for 7 to 10days. You may change the dressing if it is saturated greater than 50%. Do not get the dressing wet at anytime. Wash your hands with antibacterial soap, rinse and dry prior to any wound care. If you have yelitza the visiting nurse or rehab facility can remove the stapes 10-14 days after surgery [address] steri-strips across the wound. Leave the steri-strips in place until they fall off on their own. You may let water from the shower run on top of the steri-strips. If you do not have a visiting nurse or rehab facility, you will need to return to the office at 10-14 days for the yelitza to be removed. If you have itching or redness around the dressing call the office. FOLLOW-UP: Please follow up with your surgeon in the orthopedic clinic in 6 weeks from the day of surgery. If you have yelitza that need to be removed, you will need to come back to the office in 10-14 days from the day of surgery. Referrals: Anjum Esparza MD [Partnered Physician] - 05/21/17 8:30 am Robert Hays Jr, MD [Primary Care Provider] -
[2017-05-14] MEDS: *HR* OxyCODONE Immed Rel 5 MG TABLET PO PRN ×2 (06:34→11:12)
[2017-05-14] MEDS: *HR* Enoxaparin 30 MG/0.3 ML SYRINGE SQ SCH (06:35)
[2017-05-14 07:12] VITALS: BP 108/56
[2017-05-14] MEDS: Ascorbic Acid 500 MG TABLET PO SCH (08:21)
[2017-05-14] MEDS: *HR* Metformin 500 MG TABLET PO SCH (08:21)
[2017-05-14] MEDS: Multivit/Ca/Min/Fe/FA 1 TAB TABLET PO SCH (08:22)
[2017-05-14] MEDS: Insulin LISPRO 300 UNITS/3 ML VIAL SQ SCH (08:22)
== END 2017-05-14 11:31 | disposition home health service (06) | DRG 470 ==
LOC: SAMDAY 13:22 → 3NENU 18:31
PROVIDERS: ADMIT Orthopaedic Surgery; ATTEND Orthopaedic Surgery